=== PATIENT | female | born 1970 | race Asian ===

== ENCOUNTER 2017-01-30 22:38 | Inpatient (IN) | payer MEDICAID, SELFPAY ==
[~2017-01-30] VITALS: Ht 154.9 cm; Wt 75.3 kg
[~2017-01-30 22:38] MED LIST: IBUPROFEN600 MG ORAL; VALIUM5 MG ORAL; [UNRECOGNIZED DRUG - REMARK]
[2017-01-30] MEDS ORDERED: Aspirin Baby 81mg ORAL ONE (23:00)
[2017-01-30] MEDS ORDERED: LORazepam Inj 2mg/ml 1ml IV ONE (23:00)
[2017-01-30] MEDS ORDERED: Famotidine 20 MG/ 2ML VIAL IVP ONE (23:00)
[2017-01-30 23:39] LABS: EOSINOPHILS % (AUTO) 0.4 % (0.0-3.0); LYMPHOCYTES % (AUTO) 17.4 % (20.0-45.0); MEAN CORPUSCULAR HEMOGLOBIN 26.2 PG (27.0-31.0); MEAN CORPUSCULAR VOLUME 79 FL (80-99); NEUTROPHILS % (AUTO) 76.1 % (45.0-75.0); PLATELET COUNT 345 K/UL (150-450); RED BLOOD COUNT 5.53 M/UL (4.20-5.40); RED CELL DISTRIBUTION WIDTH 13.6 % (11.6-14.8); WHITE BLOOD COUNT 12.3 K/UL (4.8-10.8)
[2017-01-30 23:42] LABS: KETONES,URINE 3+ (NEGATIVE); LEUKOCYTE ESTERASE ,URINE 3+ (NEGATIVE); NITRITE,URINE NEGATIVE (NEGATIVE); PH,URINE 7 (4.5-8.0); PROTEIN,URINE 1+ (NEGATIVE); UROBILINOGEN,URINE NORMAL MG/DL (0.0-1.0)
[2017-01-30 23:51] LABS: APPEARANCE,URINE SLIGHTLY CLOUDY
[2017-01-30 23:52] LABS: BACTERIA,URINE FEW /HPF; RBC,URINE 15-20 /HPF (0 - 2); SQUAMOUS EPITHELIAL CELL,UR MANY /LPF (NONE/OCC); WBC,URINE 60-80 /HPF (0 - 2)
[2017-01-30 23:53] LABS: INR 1.1 (0.9-1.1); PROTHROMBIN TIME 10.7 SEC (9.30-11.50)
[2017-01-30 23:54] LABS: ALANINE AMINOTRANSFERASE 20 U/L (3-33); ANION GAP 19 (5-15); ASPARTATE AMINO TRANSFERASE 47 U/L (5-40); CALCIUM 9.7 mg/dL (8.6-10.2); CARBON DIOXIDE 24 mEQ/L (20-30); CHLORIDE 92 mEQ/L (98-107); GLOMERULAR FILTRATION RATE > 60 mL/min (>60); HEMOLYSIS 0; POTASSIUM 3.7 mEQ/L (3.4-4.9); SODIUM 135 mEQ/L (135-145); TOTAL PROTEIN 8.7 g/dL (6.6-8.7)
[2017-01-30 23:57] LABS: TROPONIN I 1.75 ng/mL (<=0.30)
[2017-01-30] MEDS ORDERED: Enoxaparin 80mg Inj SUBQ STA (23:58)
[2017-01-31] VITALS (27 sets, daily range): BP systolic 104–179; BP diastolic 71–111
[2017-01-31] MEDS ORDERED: Nitroglycerin 2% oint pkt TOPIC ONE
[2017-01-31] MEDS ORDERED: Metoprolol 5mg/5ml Inj IVP SCH
[2017-01-31] MEDS ORDERED: Morphine Sulfate 2mg/ml Inj IVP ONE
[2017-01-31] MEDS: Nitroglycerin Subl 0.4mg tab (Bottle Of 25) SL PRN ×3 (00:15→22:07)
--- NOTE | 2017-01-31 00:34 | Emergency Room Report ---
History of Present Illness General Chief Complaint: Chest Pain Source: Patient Present Illness HPI The patient presents with left-sided chest pain radiating up into her shoulder. This began at 11 AM. She woke up at 1045 and noticed at that time. She's states it's aching. She feels a gets better when she gets into fresh air. Is not worse when she is laying down. She does not feel indigestion. She thought that she just slept wrong were had a strain of her left shoulder. She is a history of hypertension and has been taking medications intermittently. She has lisinopril and a second medicine. This evening she was feeling palpitations at movie theater. The pain got worse at that time. She states is 6/10 at this time. No other medications were taken. No fevers, URI, cough, dyspnea, NVD, extremity pain or swelling, rashes, headache, bleeding. She does feel some anxiety. Allergies: Coded Allergies: No Known Allergies (Unverified , 01/30/17) Patient History Past Medical History: see triage record Social History: Denies: smoking Social History Narrative with daughter Last Menstrual Period: 12/27/16 Now: No Reviewed Nursing Documentation: PMH: Agreed, PSxH: Agreed Nursing Documentation-PMH Hx Cardiac Problems: No Hx Hypertension: Yes Hx Pacemaker: No Hx Asthma: No Hx COPD: No Hx Diabetes: No Hx Cancer: No Hx Gastrointestinal Problems: No Hx Dialysis: No Hx Neurological Problems: No Hx Cerebrovascular Accident: No Hx Seizures: No Review of Systems All Other Systems: negative except mentioned in HPI Physical Exam Vital Signs Date Time Temp Pulse Resp B/P Pulse Ox O2 Delivery O2 Flow Rate FiO2 01/30/17 22:42 97.5 92 16 159/108 100 Sp02 EP Interpretation: reviewed, normal General Appearance: well appearing, no apparent distress, GCS 15 Head: normocephalic Eyes: bilateral eye PERRL, bilateral eye normal inspection ENT: moist mucus membranes Neck: supple Respiratory: lungs clear, normal breath sounds Cardiovascular #1: regular rate, rhythm, no edema, no gallop, no murmur, no rub Cardiovascular #2: 2+ radial (R) Gastrointestinal: normal inspection, normal bowel sounds, non tender, no mass, non-distended Musculoskeletal: back normal, gait/station normal, normal range of motion Neurologic: alert, oriented x3, grossly normal Psychiatric: anxious Skin: normal inspection, warm/dry Procedures Critical Care Time Critical Care Time Total Critical Care Time: 30 min bedside evaluation and treatment excludes procedures (EKG). Reason for critical care: NSTEMI with repeated re-evaluations Possible complications: hypotension, hypertension, MS, shock, arrhythmias, metabolic acidosis, end organ damage, respiratory failure. Interventions: aspirin, metoprolol, nitrates, lovenox Course: Patient presented with chest pain. Evaluation with normal EKG. Aspirin given. + troponin - nitroglycerine given without change (BLACK). Metoprolol and morphine given. Still with pain. Repeat EKG unchanged. Patient BP better. Admit to ICU. Improved but concern over NSTEMI and elevated troponin. Consultations: nursing staff, EMS, family Performed by: Dr. Zurita Tolerated well condition = serious Medical Decision Making Diagnostic Impression: Primary Impression: NSTEMI (non-ST elevated myocardial infarction) Additional Impression: Hypertension Qualified Codes: I10 - Essential (primary) hypertension ER Course Patient presents with chest pain. Only risk factor HTN. Atypical history, but evaluation for cardiac cause indicated. DDx: AMI, muscle strain, anxiety, GERD , costochondritis amongst others. EKG, CXR, labs ordered. Aspirin and lorazepam ordered. residential team leader. Patient EKG is normal. Chest x-ray also was normal. Lab called with positive troponin. The patient regarding given aspirin. She was also given nitrates. The nitroglycerin did not help her. She still felt pain in her chest. Lovenox and see metoprolol were also ordered. In addition to that she's morphine was also ordered. Repeated evals with no change with nitrates. Metoprolol with resultant improvement in HR and BP. Second EKG unchanged. Morphine given along with lovenox. NSTEMI which could also be myocarditis. Concern with h/o palpitations. Admit ICU Dr. Valle. Laboratory Tests Test 01/30/17 23:04 01/30/17 23:10 01/31/17 07:24 01/31/17 08:15 Urine Color Pale yellow Urine Appearance Slightly cloudy Urine pH 7 (4.5-8.0) Urine Specific [place] 1.010 (1.005-1.035) Urine Protein 1+ (NEGATIVE) H Urine Glucose (UA) Negative (NEGATIVE) Urine Ketones 3+ (NEGATIVE) H Urine Occult Blood 2+ (NEGATIVE) H Urine Nitrite Negative (NEGATIVE) Urine Bilirubin Negative (NEGATIVE) Urine Urobilinogen Normal MG/DL (0.0-1.0) Urine Leukocyte Esterase 3+ (NEGATIVE) H Urine RBC 15-20 /HPF (0 - 2) H Urine WBC 60-80 /HPF (0 - 2) H Urine Squamous Epithelial Cells Many /LPF (NONE/OCC) H Urine Bacteria Few /HPF (NONE) Urine HCG, Qualitative Negative Urine Opiates Screen Negative (NEGATIVE) Urine Barbiturates Screen Negative (NEGATIVE) Phencyclidine (PCP) Screen Negative (NEGATIVE) Urine Amphetamines Screen Negative (NEGATIVE) Urine Benzodiazepines Screen Negative (NEGATIVE) Urine Cocaine Screen Negative (NEGATIVE) Urine Marijuana (THC) Screen Negative (NEGATIVE) White Blood Count 12.3 K/UL (4.8-10.8) H 12.6 K/UL (4.8-10.8) H Red Blood Count 5.53 M/UL (4.20-5.40) H 5.29 M/UL (4.20-5.40) Hemoglobin 14.5 G/DL (12.0-16.0) 13.7 G/DL (12.0-16.0) Hematocrit 44.0 % (37.0-47.0) 43.1 % (37.0-47.0) Mean Corpuscular Volume 79 FL (80-99) L 81 FL (80-99) Mean Corpuscular Hemoglobin 26.2 PG (27.0-31.0) L 25.9 PG (27.0-31.0) L Mean Corpuscular Hemoglobin Concent 33.0 G/DL (32.0-36.0) 31.7 G/DL (32.0-36.0) L Red Cell Distribution Width 13.6 % (11.6-14.8) 13.5 % (11.6-14.8) Platelet Count 345 K/UL (150-450) 323 K/UL (150-450) Mean Platelet Volume 10.0 FL (6.5-10.1) 10.3 FL (6.5-10.1) H Neutrophils (%) (Auto) 76.1 % (45.0-75.0) H 64.9 % (45.0-75.0) Lymphocytes (%) (Auto) 17.4 % (20.0-45.0) L 23.7 % (20.0-45.0) Monocytes (%) (Auto) 5.0 % (1.0-10.0) 8.6 % (1.0-10.0) Eosinophils (%) (Auto) 0.4 % (0.0-3.0) 1.6 % (0.0-3.0) Basophils (%) (Auto) 1.0 % (0.0-2.0) 1.2 % (0.0-2.0) Prothrombin Time 10.7 SEC (9.30-11.50) Prothrombin Time INR 1.1 (0.9-1.1) PTT 29 SEC (23-33) Sodium Level 135 mEQ/L (135-145) 137 mEQ/L (135-145) Potassium Level 3.7 mEQ/L (3.4-4.9) 3.4 mEQ/L (3.4-4.9) Chloride Level 92 mEQ/L (98-107) L 96 mEQ/L (98-107) L Carbon Dioxide Level 24 mEQ/L (20-30) 26 mEQ/L (20-30) Anion Gap 19 (5-15) H 15 (5-15) Blood Urea Nitrogen 11 mg/dL (7-23) 12 mg/dL (7-23) Creatinine 1.0 mg/dL (0.5-0.9) H 0.9 mg/dL (0.5-0.9) Estimate Glomerular Filtration Rate > 60 mL/min (>60) > 60 mL/min (>60) Glucose Level 139 mg/dL (74-106) H 105 mg/dL (74-106) Calcium Level 9.7 mg/dL (8.6-10.2) 9.1 mg/dL (8.6-10.2) Total Bilirubin 0.6 mg/dL (0.0-1.2) 0.5 mg/dL (0.0-1.2) Aspartate Amino Transferase (AST) 47 U/L (5-40) H 104 U/L (5-40) H Alanine Aminotransferase (ALT) 20 U/L (3-33) 26 U/L (3-33) Alkaline Phosphatase 77 U/L (35-104) 70 U/L (35-104) Total Creatine Kinase 434 U/L (26-140) H Troponin I 1.75 ng/mL (<=0.30) *H 9.89 ng/mL (<=0.30) *H Pending Total Protein 8.7 g/dL (6.6-8.7) 7.9 g/dL (6.6-8.7) Albumin 4.4 g/dL (3.5-5.2) 3.9 g/dL (3.5-5.2) Globulin 4.3 g/dL 4.0 g/dL Albumin/Globulin Ratio 1.0 (1.0-2.7) 0.9 (1.0-2.7) L EKG Diagnostic Results Rate: normal Rhythm: NSR ST Segments: no acute changes Other Impression EKG #2 0:40 - NSR, Nl axis, rate 67, normal EKG Rhythm Strip Diag. Results EP Interpretation: yes Rhythm: NSR, no PVC's, no ectopy Chest X-Ray Diagnostic Results EP Interpretation: Yes Findings: no consolidation, no effusion, no pneumothorax, no acute cardiopulmonary disease Number of Views: 1 Last Vital Signs Date Time Temp Pulse Resp B/P Pulse Ox O2 Delivery O2 Flow Rate FiO2 01/31/17 00:23 150/101 01/30/17 22:50 92 16 01/30/17 22:42 97.5 100 Status: improved Disposition: ADMITTED INPATIENT Condition: Serious Referrals: NOT CHOSEN IQRA/,REFERRING (PCP) Amrit Zurita M.D. January 31, 2017 00:34
[2017-01-31] MEDS ORDERED: Morphine Sulfate 4mg/ml Inj IVP ONE (01:00)
[2017-01-31] MEDS ORDERED: LISINOPRIL-HCT1 EACH ORAL (02:17)
[2017-01-31] MEDS ORDERED: AMLODIPINE BESY10 MG ORAL (02:17)
[2017-01-31] MEDS ORDERED: Morphine Sulfate 4mg/ml Inj IVP PRN (07:00)
[2017-01-31] MEDS ORDERED: Heparin 25,000u/D5W 500ml 500 ML IV SCH ×3 (08:00→22:20)
[2017-01-31 08:23] LABS: ALANINE AMINOTRANSFERASE 26 U/L (3-33); ALBUMIN/GLOBULIN RATIO 0.9 (1.0-2.7); ANION GAP 15 (5-15); ASPARTATE AMINO TRANSFERASE 104 U/L (5-40); CALCIUM 9.1 mg/dL (8.6-10.2); CARBON DIOXIDE 26 mEQ/L (20-30); CHLORIDE 96 mEQ/L (98-107); CREATININE 0.9 mg/dL (0.5-0.9); GLOMERULAR FILTRATION RATE > 60 mL/min (>60); HEMOLYSIS 24; POTASSIUM 3.4 mEQ/L (3.4-4.9); SODIUM 137 mEQ/L (135-145); TOTAL PROTEIN 7.9 g/dL (6.6-8.7)
[2017-01-31 08:56] LABS: TROPONIN I 9.89 ng/mL (<=0.30)
[2017-01-31] MEDS ORDERED: Pantoprazole Inj IVP SCH (09:00)
[2017-01-31 09:17] LABS: BASOPHILS % (AUTO) 1.2 % (0.0-2.0); EOSINOPHILS % (AUTO) 1.6 % (0.0-3.0); LYMPHOCYTES % (AUTO) 23.7 % (20.0-45.0); MEAN CORPUSCULAR HEMOGLOBIN 25.9 PG (27.0-31.0); MEAN CORPUSCULAR HGB CONC 31.7 G/DL (32.0-36.0); MEAN CORPUSCULAR VOLUME 81 FL (80-99); MEAN PLATELET VOLUME 10.3 FL (6.5-10.1); MONOCYTES % (AUTO) 8.6 % (1.0-10.0); NEUTROPHILS % (AUTO) 64.9 % (45.0-75.0); PLATELET COUNT 323 K/UL (150-450); RED BLOOD COUNT 5.29 M/UL (4.20-5.40); RED CELL DISTRIBUTION WIDTH 13.5 % (11.6-14.8); WHITE BLOOD COUNT 12.6 K/UL (4.8-10.8)
--- NOTE | 2017-01-31 13:17 | History and Physical ---
History of Present Illness General Date patient seen: January 31, 2017 Reason for Hospitalization: Chest Pain Present Illness HPI 47 year old female with hx of THN presented with left-sided chest pain radiating up into her shoulder. This began at 11 AM yesterday. Yesterday evening she was feeling palpitations at movie theater. The pain got worse at that time. She states is 6/10 at this time. Her initial EKG was negative and her troponin was minimally high. She was admitted to ICU for further treatment Allergies: Coded Allergies: No Known Allergies (Unverified , 01/30/17) Medication History Scheduled Amlodipine Besylate* (Amlodipine Besylate*), 10 MG ORAL DAILY, (Reported) Lisinopril/Hydrochlorothiazide 10-12.5 Mg Tab (Lisinopril-Hctz 10-12.5 Mg Tab), 1 TAB ORAL DAILY, (Reported) Scheduled PRN Diazepam* (Valium*), 5 MG ORAL BEDTIME PRN for For Pain Ibuprofen* (Motrin*), 600 MG ORAL Q8H PRN for For Pain Miscellaneous Medications [Unk Bp Med (X2)], (Reported) Patient History Healthcare decision maker Resuscitation status Advanced Directive on File Past Medical/Surgical History Past Medical/Surgical History: (1) Hypertension Review of Systems All Other Systems: negative except mentioned in HPI Physical Exam General Appearance: WD/WN Lines, tubes and drains: peripheral, central line HEENT: normocephalic, atraumatic Neck: non-tender, normal alignment Respiratory/Chest: chest wall non-tender, lungs clear Breasts: no masses Cardiovascular/Chest: normal peripheral pulses, regular rhythm Last 24 Hour Vital Signs Date Time Temp Pulse Resp B/P Pulse Ox O2 Delivery O2 Flow Rate FiO2 01/31/17 13:00 75 19 111/74 100 Nasal Cannula 2.0 01/31/17 12:00 83 01/31/17 12:00 97.1 80 18 128/77 100 Nasal Cannula 2.0 01/31/17 11:00 78 19 122/84 100 Nasal Cannula 2.0 01/31/17 10:00 80 17 124/83 100 Nasal Cannula 2.0 01/31/17 09:00 68 18 125/82 100 Nasal Cannula 2.0 01/31/17 08:00 68 01/31/17 08:00 97.7 78 17 127/93 100 Nasal Cannula 2.0 01/31/17 07:00 65 17 115/77 100 Nasal Cannula 2.0 01/31/17 06:00 97.8 65 17 104/71 100 Nasal Cannula 2.0 01/31/17 05:00 64 18 113/76 100 Nasal Cannula 2.0 01/31/17 04:00 60 18 125/81 100 Nasal Cannula 2.0 01/31/17 03:00 65 18 124/86 100 Nasal Cannula 2.0 01/31/17 02:00 97.7 72 18 134/88 100 Nasal Cannula 2.0 01/31/17 02:00 72 01/31/17 01:30 97.5 75 16 143/87 99 01/31/17 00:55 97.7 68 17 123/84 100 Nasal Cannula 2.0 01/31/17 00:46 97.5 01/31/17 00:45 97.5 75 16 143/87 99 01/31/17 00:33 93 141/93 01/31/17 00:27 147/97 01/31/17 00:25 97.5 95 16 147/97 100 01/31/17 00:23 150/101 01/31/17 00:20 97.5 95 16 179/111 100 01/31/17 00:15 97.5 93 16 150/101 100 01/31/17 00:15 179/111 01/30/17 22:50 92 16 01/30/17 22:42 97.5 92 16 159/108 100 Intake and Output 01/30/17 01/31/17 19:00 07:00 Intake Total 0 ml Output Total 100 ml Balance -100 ml Intake Oral 0 ml Output Urine Total 100 ml Laboratory Tests Test 01/30/17 23:04 01/30/17 23:10 01/31/17 07:24 01/31/17 08:15 Urine Color Pale yellow Urine Appearance Slightly cloudy Urine pH 7 (4.5-8.0) Urine Specific [place] 1.010 (1.005-1.035) Urine Protein 1+ (NEGATIVE) H Urine Glucose (UA) Negative (NEGATIVE) Urine Ketones 3+ (NEGATIVE) H Urine Occult Blood 2+ (NEGATIVE) H Urine Nitrite Negative (NEGATIVE) Urine Bilirubin Negative (NEGATIVE) Urine Urobilinogen Normal MG/DL (0.0-1.0) Urine Leukocyte Esterase 3+ (NEGATIVE) H Urine RBC 15-20 /HPF (0 - 2) H Urine WBC 60-80 /HPF (0 - 2) H Urine Squamous Epithelial Cells Many /LPF (NONE/OCC) H Urine Bacteria Few /HPF (NONE) Urine HCG, Qualitative Negative Urine Opiates Screen Negative (NEGATIVE) Urine Barbiturates Screen Negative (NEGATIVE) Phencyclidine (PCP) Screen Negative (NEGATIVE) Urine Amphetamines Screen Negative (NEGATIVE) Urine Benzodiazepines Screen Negative (NEGATIVE) Urine Cocaine Screen Negative (NEGATIVE) Urine Marijuana (THC) Screen Negative (NEGATIVE) White Blood Count 12.3 K/UL (4.8-10.8) H 12.6 K/UL (4.8-10.8) H Red Blood Count 5.53 M/UL (4.20-5.40) H 5.29 M/UL (4.20-5.40) Hemoglobin 14.5 G/DL (12.0-16.0) 13.7 G/DL (12.0-16.0) Hematocrit 44.0 % (37.0-47.0) 43.1 % (37.0-47.0) Mean Corpuscular Volume 79 FL (80-99) L 81 FL (80-99) Mean Corpuscular Hemoglobin 26.2 PG (27.0-31.0) L 25.9 PG (27.0-31.0) L Mean Corpuscular Hemoglobin Concent 33.0 G/DL (32.0-36.0) 31.7 G/DL (32.0-36.0) L Red Cell Distribution Width 13.6 % (11.6-14.8) 13.5 % (11.6-14.8) Platelet Count 345 K/UL (150-450) 323 K/UL (150-450) Mean Platelet Volume 10.0 FL (6.5-10.1) 10.3 FL (6.5-10.1) H Neutrophils (%) (Auto) 76.1 % (45.0-75.0) H 64.9 % (45.0-75.0) Lymphocytes (%) (Auto) 17.4 % (20.0-45.0) L 23.7 % (20.0-45.0) Monocytes (%) (Auto) 5.0 % (1.0-10.0) 8.6 % (1.0-10.0) Eosinophils (%) (Auto) 0.4 % (0.0-3.0) 1.6 % (0.0-3.0) Basophils (%) (Auto) 1.0 % (0.0-2.0) 1.2 % (0.0-2.0) Prothrombin Time 10.7 SEC (9.30-11.50) Prothromb Time International Ratio 1.1 (0.9-1.1) Activated Partial Thromboplast Time 29 SEC (23-33) Sodium Level 135 mEQ/L (135-145) 137 mEQ/L (135-145) Potassium Level 3.7 mEQ/L (3.4-4.9) 3.4 mEQ/L (3.4-4.9) Chloride Level 92 mEQ/L (98-107) L 96 mEQ/L (98-107) L Carbon Dioxide Level 24 mEQ/L (20-30) 26 mEQ/L (20-30) Anion Gap 19 (5-15) H 15 (5-15) Blood Urea Nitrogen 11 mg/dL (7-23) 12 mg/dL (7-23) Creatinine 1.0 mg/dL (0.5-0.9) H 0.9 mg/dL (0.5-0.9) Estimat Glomerular Filtration Rate > 60 mL/min (>60) > 60 mL/min (>60) Glucose Level 139 mg/dL (74-106) H 105 mg/dL (74-106) Calcium Level 9.7 mg/dL (8.6-10.2) 9.1 mg/dL (8.6-10.2) Total Bilirubin 0.6 mg/dL (0.0-1.2) 0.5 mg/dL (0.0-1.2) Aspartate Amino Transf (AST/SGOT) 47 U/L (5-40) H 104 U/L (5-40) H Alanine Aminotransferase (ALT/SGPT) 20 U/L (3-33) 26 U/L (3-33) Alkaline Phosphatase 77 U/L (35-104) 70 U/L (35-104) Total Creatine Kinase 434 U/L (26-140) H Troponin I 1.75 ng/mL (<=0.30) *H 9.89 ng/mL (<=0.30) *H Total Protein 8.7 g/dL (6.6-8.7) 7.9 g/dL (6.6-8.7) Albumin 4.4 g/dL (3.5-5.2) 3.9 g/dL (3.5-5.2) Globulin 4.3 g/dL 4.0 g/dL Albumin/Globulin Ratio 1.0 (1.0-2.7) 0.9 (1.0-2.7) L Height (Feet): 5 Height (Inches): 1.00 Weight (Pounds): 166 Medications Current Medications Medications (Trade) Dose Ordered Sig/Alicia Route PRN Reason Start Time Stop Time Status Last Admin Dose Admin Acetaminophen (Tylenol) 650 mg Q4H PRN ORAL Mild Pain/Temp > 100.5 01/31/17 07:00 03/02/17 06:59 01/31/17 12:08 Heparin Sodium/ Dextrose (Heparin) 500 ml @ 18.071 mls/ hr adjust per protocol IV 01/31/17 08:00 03/02/17 07:59 01/31/17 08:07 Metoprolol Tartrate (Lopressor) 5 mg Q5MIN X 3 IVP 01/31/17 00:00 03/02/17 00:00 01/31/17 00:33 Morphine Sulfate (Morphine Sulfate) 4 mg Q4H PRN IVP FOR SEVERE PAIN 01/31/17 07:00 02/07/17 06:59 Nitroglycerin (Ntg) 0.4 mg Q5M PRN SL Prn Chest Pain 01/31/17 00:00 03/02/17 00:00 01/31/17 00:23 Pantoprazole 40 mg 40 mg DAILY IVP 01/31/17 09:00 03/02/17 08:59 01/31/17 08:05 Temazepam (Restoril) 15 mg HSPRN PRN ORAL Insomnia 01/31/17 07:00 02/07/17 06:59 Assessment/Plan Problem List: (1) NSTEMI (non-ST elevated myocardial infarction) ICD Codes: I21.4 - Non-ST elevation (NSTEMI) myocardial infarction SNOMED: 313043792 (2) Hypertension ICD Codes: I10 - Essential (primary) hypertension SNOMED: 18216303 Assessment/Plan IV heparin cardio evaluation cardio to see check troponin transfer to higher level of care. RONY OTERO January 31, 2017 13:17
--- NOTE | 2017-01-31 13:32 | Consultation ---
Consult Note Consult Note Cardiology consult for Dr. Garcia full consult dictated # [id number] СВЕТЛАНА BUNCH January 31, 2017 13:32
[2017-01-31 14:30] LABS: TROPONIN I 9.12 ng/mL (<=0.30)
[2017-01-31] MEDS ORDERED: Heparin 5000 units/ml inj IV ONE (14:45)
[2017-01-31] MEDS ORDERED: Atorvastatin 20mg tab ORAL SCH (21:00)
[2017-01-31] MEDS ORDERED: Metoprolol 25mg tab ORAL SCH (21:00)
[2017-01-31 21:27] LABS: TROPONIN I 5.15 ng/mL (<=0.30)
--- NOTE | 2017-01-31 23:15 | Consultation ---
DATE OF CONSULTATION: CARDIOLOGY CONSULTATION: This is a cardiology consult done as coverage for Dr. Garcia. REASON FOR CONSULTATION: Chest pain and acute myocardial infarction. HISTORY OF PRESENT ILLNESS: The patient is a 47-year-old woman with a history of hypertension, who awoke yesterday with chest pain 6/10 severity associated with numbness of her left arm. She continued her activities and yesterday afternoon developed nausea. She rested briefly and symptoms improved. She then went to a movie where the chest pain recurred and she also noted a sensation of her heart "pounding" . After the movie, she drove to the emergency room where she was evaluated and noted to have an elevated troponin level of 1.75. EKG did not show any acute ischemic ST-segment changes. She was admitted for further treatment. This morning, her troponin level has increased to 9.8. She has no current symptoms of chest pain, palpitations, or dyspnea. PAST MEDICAL HISTORY: As noted above. The patient has no history of hyperlipidemia, diabetes or known coronary artery disease MEDICATIONS: At home lisinopril HCT 10/12.5 mg daily and amlodipine 10 mg daily. ALLERGIES: No known drug allergies. SOCIAL HISTORY: The patient is a nonsmoker. Drinks alcohol socially and does not use any drugs. FAMILY HISTORY: Positive for diabetes in two paternal aunts and breast cancer in a paternal aunt. PHYSICAL EXAMINATION: VITAL SIGNS: Blood pressure is 109/76, pulse 88, regular, respirations 20, and afebrile. GENERAL: The patient is alert, obese, and female, in no acute distress. HEENT: Normocephalic and atraumatic. Pupils are equal, round, and reactive to light. Sclerae anicteric. Oral mucosa moist. NECK: Supple. There is no jugular venous distention. Carotid pulses are 2+ bilateral without bruits. No thyromegaly. LUNGS: Clear to auscultation bilaterally. HEART: Regular S1 and S2. No murmurs, rubs, S3, or S4. ABDOMEN: Obese, soft, nontender. No palpable mass. EXTREMITIES: No cyanosis, clubbing, or edema. A 2+ dorsalis pedis pulses bilaterally. LABORATORY AND DIAGNOSTIC DATA: Troponin 1.75 on admission and repeat 9.89. Sodium 137, potassium 3.4, chloride 96, bicarb 26, BUN 12, and creatinine 0.9. Hemoglobin 13.7, hematocrit 43, white blood count 12,600, and platelets 323,000. EKG shows sinus rhythm, rate of 67 beats per minute. [place] +10 degrees. Diffuse flattening of T-waves. No ST-segment changes. Low voltage QRS. Chest x-ray shows no cardiomegaly, infiltrates, or effusions. ASSESSMENT AND RECOMMENDATION: The patient is a 47-year-old woman with a history of hypertension, who presents with intermittent chest pain, left arm numbness, and nausea present intermittently over several hours prior to admission. Her initial troponin was mildly elevated. Repeat shows further elevation consistent with myocardial infarction. Her EKG does not show any ST-segment changes. She is diagnosed with acute non ST-segment elevation myocardial infarction. She is currently chest pain free. She has been started on intravenous heparin and aspirin. We will start beta-blockers and statin therapy. An echo will be obtained to evaluate left ventricular function and wall motion. Additional troponin levels and EKGs will be obtained. The patient will be transferred for diagnostic coronary angiography and consideration for percutaneous coronary revascularization. Elizabeth Fuller M.D. DR: Morenita JOB#: [id number] CC:
[2017-02-01] MEDS ORDERED: Aspirin EC 325mg tab ORAL SCH (09:00)
--- NOTE | 2017-02-02 07:54 | Cardiology Report ---
APPROVED REPORT EKG Measurement Heart [id number] [place] [id number] Normal sinus rhythm Normal ECG
--- NOTE | 2017-02-02 07:54 | Cardiology Report ---
APPROVED REPORT EKG Measurement Heart [id number] [place] [id number] Normal sinus rhythm Nonspecific T wave abnormality Abnormal ECG
--- NOTE | 2017-02-02 07:54 | Cardiology Report ---
APPROVED REPORT EKG Measurement Heart [id number] QT0T0 QTc0 No QRS complexes found, no ECG analysis possible
--- NOTE | 2017-02-02 09:18 | Diagnostic Imaging Report ---
Indication: Chest pain. Comparison: 04/20/14 A single view chest radiograph was obtained. Findings: Cardiomediastinal appearance is within normal limits for age. Pulmonary vascularity is appropriate. The diaphragmatic contour is smooth and costophrenic angles are sharp. No pleural effusions are identified. The bones are unremarkable. Impression: No acute findings
== END 2017-01-31 22:36 | disposition short-term general hospital (02) | DRG 190 ==
LOC: EMR 23:10 → EDBEDREQ 01-31 00:44 → ICU 01-31 01:05
DX: I21.4 Non-ST elevation (NSTEMI) myocardial infarction (principal); I10 Essential (primary) hypertension
CPT/HCPCS: 36415; 71010; 80053; 80300; 81003; 81025; 82550; 84484; 85025; 85610; 85730; 87081; 87086; 93005; 93306; J2405

== ENCOUNTER 2020-11-02 23:52 | Emergency (ER) | payer BC, MEDICAID ==
[~2020-11-02] VITALS: Ht 154.9 cm; Wt 69.4 kg
[~2020-11-02 23:52] MED LIST changes: +AMLODIPINE BESY10 MG ORAL; +LISINOPRIL-HCT1 EACH ORAL
[2020-11-03] MEDS ORDERED: DUTOPROL 50-121 EACH ORAL (00:08)
[2020-11-03] MEDS ORDERED: ASPIRIN81 MG ORAL (00:08)
[2020-11-03 00:14] VITALS: BP 132/77
--- NOTE | 2020-11-03 00:19 | NUR ---
pt aox3 c/o lac to left hand. bleeding controlled. md at bedside for eval.
--- NOTE | 2020-11-03 00:23 | Emergency Room Report ---
History of Present Illness General Chief Complaint: Laceration Source: Patient Present Illness HPI Patient broke a glass and tried to grab it. She cut her left hand. She is right-handed. This happened approximately half an hour prior to coming. She states there was significant bleeding however this was controlled with pressure and elevation of the hand. She believes her tetanus may be LVEF that day but s he is uncertain. She rates the pain 4/10 at this time. She denies any numbness. There is no limitation in the movement of her fingers nor is there any weakness. Patient denies exposure to Covid positive contacts. 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 counselor Reviewed Nursing Documentation: PMH: Agreed; PSxH: Agreed Nursing Documentation-PMH Hx Cardiac Problems: No Hx Hypertension: Yes Hx Pacemaker: No Hx Asthma: No Hx COPD: No Hx Diabetes: No Hx Cancer: No Hx Gastrointestinal Problems: No Hx Dialysis: No Hx Neurological Problems: No Hx Cerebrovascular Accident: No Hx Seizures: No Review of Systems Constitutional: Denies: fever Musculoskeletal: Reports: see HPI Skin: Reports: see HPI Neurological: Reports: see HPI Hematologic/Lymphatic: Reports: see HPI Physical Exam Vital Signs Date Time Temp Pulse Resp B/P (MAP) Pulse Ox O2 Delivery O2 Flow Rate FiO2 11/03/20 00:00 97.9 81 20 132/77 (95) 98 Room Air Sp02 EP Interpretation: reviewed, normal General Appearance: well appearing, no apparent distress, GCS 15 Head: normocephalic Eyes: bilateral eye normal inspection, bilateral eye PERRL ENT: moist mucus membranes Respiratory: normal inspection Cardiovascular #1: regular rate, rhythm Cardiovascular #2: 2+ radial (R), 2+ radial (L) - Good capillary fill Gastrointestinal: normal inspection Musculoskeletal: gait/station normal, normal range of motion - No tendon weakness Neurologic: alert, distal neuro normal Psychiatric: mood/affect normal Skin: laceration Procedures Laceration/Wound Repair Laceration/Wound Repair : Consent: Verbal Wound Location: upper extremity Wound's Depth, Shape: superficial, flap Wound Length (cm): 2 Wound Explored: clean Irrigated w/ Saline (ccs): 10 Betadine Prep?: Yes Anesthesia: 1% Lidocaine Volume Anesthetic (ccs): 1 Wound Debrided: minimal Wound Repaired With: sutures Suture Size/Type: 5:0, nylon Layer Closure?: No Sterile Dressing Applied?: Yes Splint Applied?: No Patient Tolerated: Well Complications: None Medical Decision Making Diagnostic Impression: Primary Impression: Laceration of left hand Qualified Codes: S61.412A - Laceration without foreign body of left hand, initial encounter ER Course Patient presents with a laceration to the left dorsum of her hand. Wound was explored to the depth and there was no foreign body. Please see procedure note. Patient requested a tetanus vaccination and this was provided. Patient was given Tylenol for pain. Please see procedure note regarding laceration repair. Discussed treatment plan with patient. Patient improved and stable for outpatient observation and treatment. Last Vital Signs Date Time Temp Pulse Resp B/P (MAP) Pulse Ox O2 Delivery O2 Flow Rate FiO2 11/03/20 00:14 97.9 20 132/77 98 Room Air 11/03/20 00:00 81 Status: improved Disposition: HOME, SELF-CARE Condition: Improved Scripts Bacitracin (Bacitracin) 28.4 Gm Oint...g. 1 APPLIC TOPIC BID, #20 GM Prov: Amrit Zurita MD 11/03/20 Referrals: NON PHYSICIAN (PCP) Amrit Zurita MD Nov 03, 2020 00:23
[2020-11-03] MEDS ORDERED: Lidocaine 1% MPF 10mg/ml 5ml INJ ONE (00:30)
[2020-11-03] MEDS ORDERED: Bacitracin Oint UD TOPIC ONE (00:30)
[2020-11-03] MEDS ORDERED: Tetanus/Diptheria/Pertussis IM ONE (00:30)
[2020-11-03] MEDS ORDERED: Acetaminophen 500mg (ES) tab ORAL ONE (00:30)
[2020-11-03] MEDS ORDERED: BACITRACIN15 GM TOPIC (00:52)
--- NOTE | 2020-11-03 01:00 | NUR ---
pt aox3 given and understands discharge instructions. v/s stabl. pt in no distress. ambulatory out w steady gait
== END 2020-11-03 01:18 | disposition home or self-care (01) ==
LOC: EMR 11-03 00:13
DX: S61.412A Laceration without foreign body of left hand, initial encounter (principal); Z23 Encounter for immunization; I10 Essential (primary) hypertension; W25.XXXA Contact with sharp glass, initial encounter; Y92.9 Unspecified place or not applicable
CPT/HCPCS: 90471; 90715; 99282